=== PATIENT | female | born 1935 | race Caucasian/White ===

== ENCOUNTER 2019-07-09 20:23 | Emergency (ER) | payer MEDICARE, OTHER ==
[~2019-07-09] VITALS: Ht 170.2 cm; Wt 77.2 kg
[2019-07-09] MEDS ORDERED: CYCLOBENZAPRINE 5MG TABLET PO ONE (21:15)
[2019-07-09] MEDS ORDERED: MORPHINE 4 MG/ML 1ML VIAL/SYRINGE (J2270) IV ONE (21:15)
[2019-07-09] MEDS ORDERED: ISOVUE-370 76% 100ML VIAL (Q9967) As Ordered ONE (21:32)
[2019-07-09 21:39] LABS: BASO % 0.5 % (0.0-1.0); EOS # 0.1 10^3/uL (0.0-0.5); EOS % 2.2 % (0.0-3.0); HEMATOCRIT 45.4 % (36.0-47.0); LYMPH # 1.9 10^3/uL (1.5-5.0); LYMPH % 31.5 % (24.0-44.0); MEAN CORPUSCULAR HEMOGLOBIN 30.4 pg (27.0-33.0); MEAN CORPUSCULAR VOLUME 92.1 fl (80.0-96.0); MONO # 0.9 10^3/uL (0.0-0.8); MONO % 14.4 % (0.0-5.0); NEUTROPHILS # 3.1 10^3/uL (1.5-8.5); NEUTROPHILS % 51.2 % (36.0-66.0); PLATELET COUNT, AUTOMATED 227 10^3/uL (150-450); RED BLOOD COUNT 4.93 10^6/uL (4.00-5.40)
--- NOTE | 2019-07-09 22:34 | REPVR ---
PROCEDURE INFORMATION: Exam: CT Angiography Abdomen and Pelvis With Contrast Exam date and time: 07/09/2019 9:58 PM Age: 84 years old Clinical history: Abdominal pain; Other: Low back pain; Additional info: Severe low back pain through to abdomen; R/O aaa TECHNIQUE: Imaging protocol: Computed tomographic angiography of the abdomen and pelvis with intravenous contrast material. 3D rendering: MIP reconstructed images were created and reviewed. Radiation optimization: All CT scans at this facility use at least one of these dose optimization techniques: automated exposure control; mA and/or kV adjustment per patient size (includes targeted exams where dose is matched to clinical indication); or iterative reconstruction. Contrast material: ISOVUE 370; Contrast volume: 100 ml; Contrast route: IV; COMPARISON: No relevant prior studies available. FINDINGS: Lungs: Mild bibasilar atelectasis. Mediastinum: A small hiatal hernia is present. Aorta: The aorta demonstrates moderate atherosclerotic calcification. There is no aneurysm or dissection. Celiac trunk and mesenteric arteries: Mild left disc changes at the origin of the celiac artery without significant Renal arteries: There is atherosclerotic changes at the origin of the right and left renal artery without significant stenosis. Right iliac arteries: Moderate atherosclerotic changes in the right iliac arteries. No aneurysm or stenosis. Left iliac arteries: Mild to moderate as chronic changes in the left iliac arteries. No aneurysm or stenosis. Liver: There is a diffuse decrease in hepatic parenchymal density, consistent with fatty infiltration. Gallbladder and bile ducts: Unremarkable. No calcified stones. No ductal dilation. Pancreas: Unremarkable. No mass. No ductal dilation. Spleen: Unremarkable. No splenomegaly. Adrenals: There is bilateral adrenal hyperplasia. Kidneys and ureters: Subcentimeter probable cyst right kidney. Stomach and bowel: Unremarkable. No obstruction. No mucosal thickening. Appendix: No evidence of appendicitis. Intraperitoneal space: Unremarkable. No free air. No significant fluid collection. Lymph nodes: Unremarkable. No enlarged lymph nodes. Bladder: Unremarkable. No mass. Reproductive: Hysterectomy. Bones/joints: Moderate central spinal stenosis L4-5 and moderate spinal stenosis at L3-4. The spine demonstrates moderate degenerative changes. Osteoporosis. Soft tissues: Unremarkable. IMPRESSION: 1. Small hiatal hernia. 2. There is a diffuse decrease in hepatic parenchymal density, consistent with fatty infiltration. 3. There is bilateral adrenal hyperplasia. 4. Mild to moderate atherosclerotic changes in the abdominal aorta and branch arteries without evidence of any high-grade stenosis, aneurysm or dissection. 5. Status post hysterectomy. 6. Moderate central spinal stenosis at L4-5 and L3-4. Electronically signed by: Freddy Ramirez On 07/09/2019 22:34:40 PM
[2019-07-09] MEDS ORDERED: CYCL5TAB PO (23:16)
[2019-07-09 23:18] VITALS: BP 147/65
--- NOTE | 2019-07-10 10:21 | ED PDOC ---
Post-Departure Follow-Up certified letter sent to pt re formal read of cta abd/p for fu . no pcp listed Radha Coppola MD Jul 10, 2019 10:21
== END 2019-07-09 23:28 | disposition home or self-care (01) ==
LOC: M ED 20:23
DX: M62.830 Muscle spasm of back (principal); M48.061 Spinal stenosis, lumbar region without neurogenic claudication; E27.8 Other specified disorders of adrenal gland; I10 Essential (primary) hypertension; I70.0 Atherosclerosis of aorta; J98.11 Atelectasis; K44.9 Diaphragmatic hernia without obstruction or gangrene
CPT/HCPCS: 36415; 74174; 80047; 85025; 86850; 86900; 86901; 96374; 99284; J2270; Q9967